=== PATIENT | female | born 1980 | race Caucasian/White ===

== ENCOUNTER 2021-03-05 13:34 | Emergency (ER) | payer OTHER, SELFPAY ==
[2021-03-05] VITALS (7 sets, daily range): BP systolic 158–170; BP diastolic 85–103; PULSE 76–91; RESP 16–22; TEMP 36.6–37.1; O2SAT 98–100; BMI 25.7
--- NOTE | 2021-03-05 14:26 | ED.GENADULT ---
HPI - General Adult General Chief complaint: General Medical Stated complaint: +covid, bodyaches, vomiting Time Seen by Provider: 03/05/21 14:26 Source: patient Mode of arrival: ambulatory Limitations: no limitations History of Present Illness HPI narrative: 40-year-old female is here today for complaining of nausea, vomiting. Patient was diagnosed with COVID few days ago. She does not have any respiratory symptoms. Patient denies any melena, hematochezia, and additional weight loss or ribbon like stools. Patient denies any dyspepsia, dysphagia or odynophagia. Denies any urinary symptoms. Patient denies any other concerning symptoms. Reports that her fiance has fever but no other symptoms. Patient denies any ill contacts Onset (ago): day(s) Location: abdomen Radiation: non-radiation Severity: mild Related Data Previous Rx's Medication Instructions Recorded ciprofloxacin HCl 500 mg tablet 500 mg PO BID #14 tab 03/05/21 ondansetron 4 mg disintegrating 4 mg PO Q8H #10 tab 03/05/21 tablet Allergies Allergy/AdvReac Type Severity Reaction Status Date / Time No Known Allergies Allergy Verified 03/05/21 14:37 Review of Systems Review of Systems: Constitutional : No Weight loss, No Fever, No Chills, No Night Sweats, No Fatigue, No Malaise ENT/Mouth : No Hearing loss, No Ear Pain, No Nasal Congestion, No Sinus Pain, No Hoarseness, No sore throat, No Rhinorrhea, No Swallowing Difficulty Eyes: No Eye Pain, No Swelling, No Redness, No Foreign Body, No Discharge, No Vision Changes Cardiovascular : No Chest Pain, No SOB, No Dyspnea on Exertion, No Orthopnea, No Edema, No Palpitations Respiratory : No Cough, No Sputum, No Wheezing, No Smoke Exposure, No Dyspnea Gastrointestinal : Nausea, Vomiting, Diarrhea, No Constipation, abdominal Pain, No Hematochezia, No Melena Genitourinary : no irregular bleeding, No Dysuria, No Urinary Frequency, No Hematuria, No Urinary Incontinence, No Urgency, No Flank Pain, No Urinary Flow Changes, No Hesitancy Musculoskeletal : No joint pain, No Myalgias, No Joint Swelling Skin : No Skin Lesions, No rash Neuro : No Weakness, No Numbness, No Paresthesias, No Loss of Consciousness, No Dizziness, No Headache Psych : Anxiety/Panic, No Depression, No SI/HI/AH/VH, No Social Issues, Yes all other systems are reviewed and are negative PMFSH Social History Social History Advance Directives: No Advance Directives Information Provided: No Patient : No Physical Exam Vital Signs: Vital Signs: Last Vital Signs Temp 98.5 F 03/05/21 21:37 Pulse 82 03/05/21 21:37 Resp 16 03/05/21 21:37 BP 162/88 H 03/05/21 21:37 Pulse Ox 100 03/05/21 21:37 Body Mass Index 25.7 Const: General: healthy appearing, no acute distress and well developed Nutritional Appearance: well nourished Orientation/consciousness: patient oriented x3 HENMT: Head: Yes normal to inspection, Yes normocephalic and Yes atraumatic Neck: Neck: Yes normal visual inspection, Yes full ROM and Yes trachea midline Thyroid: Thyroid normal Chest: Chest palpation & inspection: normal inspection of the chest Resp: Effort & Inspection: normal respiratory effort and able to speak in complete sentences Auscultation: clear to auscultation bilaterally Cardio: Rate: regular rate Rhythm: regular rhythm Heart sounds: S1 normal heart sound present and S2 normal heart sound present GI: Inspection: Yes normal to inspection and No distended Palpation (GI): No hepatosplenomegaly present Auscultation: normal bowel sounds Skin: General skin exam: elasticity normal, turgor normal and dry skin Neuro: General: patient oriented x3 Psych: Appearance: grossly normal Mental Status: mental status grossly normal Speech and movement: Normal speech and movement present Affect: Other affect and mood findings present (patient very anxious, tearful) Attitude: cooperative Course Course Course Narrative: 40-year-old female is here today for nausea, vomiting and body aches. Patient was diagnosed with COVID few days ago. Patient is not vaccinated for COVID. Patient denies any respiratory symptoms. Denies any melena or hematochezia. Denies any abdominal discomfort. No urinary symptoms. Will medicate her with Zofran, give her Toradol. Give her IV fluids. Check CBC and CMP. Reevaluation(s) Reevaluation #1: Symptoms were relieved with nausea medicine and pain medication. Patient's H&H is elevated, patient is dehydrated I will give her another L of fluids. Reevaluation #2: Urine is positive for nitrate. I will medicate her with levofloxacin. She will be sent home on medication. Patient does not have any leukocytosis. Patient continues to have no nausea or vomiting. She is very tearful because she is worry about her fiance who has a fever and he is home by himself. Reevaluation #3: Patient is feeling better, however she is very teary as her fiance is home by himself and has a fever. I will be sending her home to follow-up with her PCP. Will give her script for Cipro. Patient was educated that she must isolate for minimum of 10 days Medical Decision Making Lab Data Result diagrams: 03/05/21 15:58 03/05/21 15:58 Labs: Lab Results 03/05/21 03/05/21 03/05/21 Range/Units 15:58 15:58 16:01 WBC 9.4 (4.8-10.8) X10*3/uL RBC 6.05 H (4.20-5.50) X10*6/uL Hgb 17.8 H (12.0-16.0) g/dl Hct 51.7 H (37-47) % MCV 85.5 (80-98) fL MCH 29.4 (27.0-33.0) pg MCHC 34.4 (31.0-35.0) g/dl RDW 13.0 (11.0-16.0) % Plt Count 350 (160-400) X10*3/uL MPV 10.0 (9.4-12.3) fL Immature Gran % (Auto) Cancelled Neut % (Auto) Cancelled Lymph % (Auto) Cancelled [place] % (Auto) Cancelled Eos % (Auto) Cancelled Baso % (Auto) Cancelled Lymph # (Auto) Cancelled [place] # (Auto) Cancelled Eos # (Auto) Cancelled Baso # (Auto) Cancelled Abs Immat Gran (auto) Cancelled Absolute Neuts (auto) Cancelled Absolute Nucleated RBC 0.020 H (0.0-0.012) X10*3/uL Nucleated RBC % (auto) 0.2 (0.0-0.2) /100WBC Neutrophils % (Manual) 66 (45-73) % Band Neutrophils % 2 L (3-5) % Lymphocytes % (Manual) 21 (20-40) % Atypical Lymphs % (Man) 7 H (0-6) % Monocytes % (Manual) 4 (2-11) % Abs Neuts (Manual) 6.4 (2.2-7.9) X10*3/uL Lymphocytes # (Manual) 2.0 (0.6-4.8) X10*3/uL Atyp Lymphs # (Manual) 0.7 x10*3/uL Monocytes # (Manual) 0.4 (0.0-1.2) X10*3/uL Platelet Estimate NORMAL (NORMAL) Plt Morphology Comment NORMAL RBC Morphology NORMAL Sodium 141 (135-145) mmol/L Potassium 4.0 (3.3-5.1) mmol/L Chloride 108 (96-108) mmol/L Carbon Dioxide 17 L (22-29) mmol/L Anion Gap 20 (12-20) BUN 14 (9-16) mg/dL Creatinine 0.74 (0.5-1.4) mg/dL Estim Creat Clear Calc 100.4 Estimated GFR > 60 Random Glucose 95 (60-115) mg/dL Calcium 10.2 (8.4-10.2) mg/dL Total Bilirubin 1.3 H (0.0-1.0) mg/dL Direct Bilirubin 0.5 (0.0-0.5) mg/dL AST 46 H (5-31) U/L ALT 67 H (0-31) U/L Alkaline Phosphatase 74 (39-117) U/L Total Protein 8.4 H (6.5-8.0) g/dL Albumin 5.0 (3.5-5.0) g/dL Lipase 29 (8-78) U/L Urine Color YELLOW Urine Appearance CLOUDY Urine pH 6.0 (5.0-8.0) Ur Specific [place] >= 1.030 H (1.005-1.025) Urine Protein 2+ H (NEG-TRACE) MG/DL Urine Glucose (UA) NEG (NEG) MG/DL Urine Ketones >=80 (NEG) MG/DL Urine Blood TRACE (NEG) Urine Nitrite POS H (NEG) Ur Leukocyte Esterase TRACE H (NEG) Urine RBC 0-2 (0) /HPF Urine WBC 5-9 H (0-4) /HPF Ur Squamous Epith Cells 4+ /LPF Urine Bacteria 4+ /LPF Discharge Plan Discharge Clinical Impression: Gastroenteritis, COVID-19, Urinary tract infection Patient Disposition: Home, Self-Care Instructions: Urinary Tract Infection in Women (ED), COVID-19 (Coronavirus Disease 2019) (ED) Additional Instructions: You were seen here today for nausea and vomiting. You tested positive for urinary tract infection. You were given 1st dose of antibiotics IV. You will be started on medication so please finish all of it. Please make sure that you are drinking plenty fluids you will also be getting medication for nausea. Please make sure that you isolate for minimum 10 days. Please follow-up with your primary care doctor in 2-3 days. You may return to emergency department if your symptoms will get worse or if your experience any additional concerning symptoms Prescriptions: New ondansetron 4 mg tablet,disintegrating 4 mg PO Q8H Qty: 10 RF: 0 ciprofloxacin HCl 500 mg tablet 500 mg PO BID Qty: 14 RF: 0 Interventions: ED Discharge Assessment Last Done: 03/05/21 21:47 Discharge Date/Time: 03/05/21 22:00
[2021-03-05] MEDS: Ketorolac Tromethamine 15 MG/ML VIAL 30 MG IVPUSH (16:03)
[2021-03-05] MEDS: ondansetron HCL 4 MG/2 ML VIAL IVPUSH ×2 (16:04→18:19)
[2021-03-05 16:13] LABS: Appearance Urine CLOUDY; Color Urine YELLOW; Glucose Urine UA NEG (NEG); Leukocyte Esterase Urine TRACE (NEG); Nitrite Urine POS (NEG); Specific Gravity - Urine >= 1.030 (1.005-1.025); UACC Culture Trigger YES; Urine Blood TRACE (NEG); Urine Ketones >=80 MG/DL (NEG); Urine Protein 2+ MG/DL (NEG-TRACE)
[2021-03-05 16:20] LABS: Bacteria Urine 4+ /LPF; RBC Urine 0-2 /HPF (0); Squamous Epithelial Cell Urine 4+ /LPF
[2021-03-05 16:30] LABS: Hematocrit 51.7 % (37-47); Hemoglobin 17.8 g/dl (12.0-16.0); Mean Corpuscular HGB Conc 34.4 g/dl (31.0-35.0); Mean Corpuscular Hemoglobin 29.4 pg (27.0-33.0); Mean Corpuscular Volume 85.5 fL (80-98); NRBC Pct Auto 0.2 /100WBC (0.0-0.2); Platelet Count 350 X10*3/uL (160-400); Red Blood Count 6.05 X10*6/uL (4.20-5.50); White Blood Count 9.4 X10*3/uL (4.8-10.8)
[2021-03-05 16:37] LABS: Alanine Aminotransferase 67 U/L (0-31); Alkaline Phosphatase 74 U/L (39-117); Anion Gap 20 (12-20); Aspartate Amino Transferase 46 U/L (5-31); Bilirubin Direct 0.5 mg/dL (0.0-0.5); Bilirubin Total 1.3 mg/dL (0.0-1.0); Blood Urea Nitrogen 14 mg/dL (9-16); Calcium 10.2 mg/dL (8.4-10.2); Carbon Dioxide 17 mmol/L (22-29); Chloride 108 mmol/L (96-108); Creatinine Clr Calc Pharmacy 100.4; Estimated Glomerular Filt Rate > 60; Glucose Random 95 mg/dL (60-115); Lipase 29 U/L (8-78); Sodium 141 mmol/L (135-145); Total Protein 8.4 g/dL (6.5-8.0)
[2021-03-05 16:42] LABS: Atypical Lymph Absolute Manual 0.7 x10*3/uL; Atypical Lymphs Percent Manual 7 % (0-6); Band Neutrophils Percent 2 % (3-5); Lymphocytes Percent Manual 21 % (20-40); Monocytes Absolute Manual 0.4 X10*3/uL (0.0-1.2); Monocytes Percent Manual 4 % (2-11); Neutrophils Absolute Manual 6.4 X10*3/uL (2.2-7.9); Neutrophils Percent Manual 66 % (45-73); Platelet Estimate NORMAL (NORMAL); Platelet Morphology Comment NORMAL; RBC Morphology NORMAL
[2021-03-05] MEDS: 0.9 % Sodium Chloride 1,000 ML 999 ML IV ×2 (17:49)
[2021-03-05] MEDS: Pantoprazole Sodium 40 MG/10 ML VIAL IVPUSH (18:17)
[2021-03-05] MEDS: levoFLOXacin/D5W 500 MG/100 ML PIGGYBACK 100 MG IV (20:30)
== END 2021-03-05 22:00 | disposition home or self-care (01) ==
PROVIDERS: Nurse Practitioner Family; Emergency Provider Emergency Medicine Emergency Medical Services
DX: U07.1 COVID-19 (principal); N39.0 Urinary tract infection, site not specified; M79.10 Myalgia, unspecified site; K52.9 Noninfective gastroenteritis and colitis, unspecified; Z79.899 Other long term (current) drug therapy
CPT/HCPCS: 36415; 80048; 80076; 81001; 83690; 85007; 85027; 87086; 96361; 96365; 96375; 96376; 99284; J1885; J1956; J2405